=== PATIENT | female | born 1950 | race Caucasian/White ===

== ENCOUNTER 2016-10-11 19:06 | Inpatient (IN) | payer MEDICARE, OTHER ==
[~2016-10-11] VITALS: Ht 165.1 cm; Wt 52.6 kg
[2016-10-12] MEDS ORDERED: TENORMIN 25 MG25 MG PO (00:21)
[2016-10-12] MEDS ORDERED: LEVOTHYROXINE75 MCG PO (00:22)
[2016-10-12] MEDS ORDERED: LORAZEPAM1 MG PO (00:23)
[2016-10-12] MEDS ORDERED: MEGACE TAB 40 M40 MG PO (00:24)
[2016-10-12] MEDS ORDERED: CYMBALTA30 MG PO (00:25)
[2016-10-12] MEDS ORDERED: K-DUR TAB 20 M20 MEQ PO (00:25)
[2016-10-12 04:16] LABS: RED BLOOD COUNT 5.51 M/UL (4.00-5.10); WHITE BLOOD COUNT 16.6 K/UL (4.5-11.0)
[2016-10-13 04:10] LABS: RED BLOOD COUNT 3.93 M/UL (4.00-5.10); WHITE BLOOD COUNT 12.3 K/UL (4.5-11.0)
[2016-10-13 04:11] LABS: HEMOGLOBIN 11.2 gm/dl (12.3-15.3)
[2016-10-14 04:45] LABS: HEMOGLOBIN 10.2 gm/dl (12.3-15.3)
[2016-10-14 04:53] LABS: RED BLOOD COUNT 3.51 M/UL (4.00-5.10); WHITE BLOOD COUNT 7.4 K/UL (4.5-11.0)
[2016-10-15 04:17] LABS: HEMOGLOBIN 9.4 gm/dl (12.3-15.3); RED BLOOD COUNT 3.28 M/UL (4.00-5.10); WHITE BLOOD COUNT 5.6 K/UL (4.5-11.0)
[2016-10-15 17:16] LABS: GLUCOSE,CSF 83 mg/dL (50-80); TOTAL PROTEIN,CSF 54 mg/dL (20-45)
[2016-10-16 04:18] LABS: HEMOGLOBIN 9.9 gm/dl (12.3-15.3); RED BLOOD COUNT 3.41 M/UL (4.00-5.10)
--- NOTE | 2016-10-16 10:32 | NUR ---
Pt alert/oriented to name after hesitation. Still guarded but easily calmed today. No screaming with touch as opposed to yesterday. at bedside. Oral care provided, EEG completed.
[2016-10-16 14:12] LABS: CRYPTOCOCCUS NEOFORMANS/GATTII Not Detected (Negative); CYTOMEGALOVIRUS Not Detected (Negative); ENTEROVIRUS Not Detected (Negative); ESCHERICHIA COLI K1 Not Detected (Negative); HAEMOPHILUS INFLUENZAE Not Detected (Negative); HERPES SIMPLEX VIRUS 1 Not Detected (Negative); HERPES SIMPLEX VIRUS 2 Not Detected (Negative); HUMAN HERPESVIRUS 6 Not Detected (Negative); HUMAN PARECHOVIRUS Not Detected (Negative); LISTERIA MONOCYTOGENES Not Detected (Negative); NEISERRIA MENINGITIDIS Not Detected (Negative); STREPTOCOCCUS AGALACTIAE Not Detected (Negative); STREPTOCOCCUS PNEUMONIAE Not Detected (Negative); VARICELLA ZOSTER VIRUS Not Detected (Negative)
[2016-10-17 03:52] LABS: HEMOGLOBIN 9.5 gm/dl (12.3-15.3); RED BLOOD COUNT 3.31 M/UL (4.00-5.10); WHITE BLOOD COUNT 7.1 K/UL (4.5-11.0)
[2016-10-18 03:57] LABS: HEMOGLOBIN 9.3 gm/dl (12.3-15.3); RED BLOOD COUNT 3.2 M/UL (4.00-5.10); WHITE BLOOD COUNT 6.7 K/UL (4.5-11.0)
[2016-10-19 04:10] LABS: HEMOGLOBIN 9.3 gm/dl (12.3-15.3); RED BLOOD COUNT 3.21 M/UL (4.00-5.10); WHITE BLOOD COUNT 7.9 K/UL (4.5-11.0)
[2016-10-19 04:32] LABS: BUN/CREATININE RATIO 10 (0-10)
[2016-10-20 04:07] LABS: HEMOGLOBIN 9.1 gm/dl (12.3-15.3); RED BLOOD COUNT 3.16 M/UL (4.00-5.10); WHITE BLOOD COUNT 10.1 K/UL (4.5-11.0)
[2016-10-22 06:22] LABS: HEMOGLOBIN 10.2 gm/dl (12.3-15.3); RED BLOOD COUNT 3.47 M/UL (4.00-5.10); WHITE BLOOD COUNT 8.9 K/UL (4.5-11.0)
[2016-10-22 06:45] LABS: BUN/CREATININE RATIO 19 (0-10)
== END 2016-10-22 15:17 | DRG 871 ==
LOC: PROG CARE 22:43 → CCU 22:43 → PROG CARE 10-15 17:47 → M/S 10-20 19:35
PROVIDERS: Family Medicine; Internal Medicine; Internal Medicine Infectious Disease; Internal Medicine Nephrology; ADMIT Internal Medicine
PROC: 02HV33Z Insertion of Infusion Device into Superior Vena Cava, Percutaneous Approach (ICD-10-PCS; principal; 2016-10-12)
PROC: 009U3ZX Drainage of Spinal Canal, Percutaneous Approach, Diagnostic (ICD-10-PCS; 2016-10-15)
DX: A41.9 Sepsis, unspecified organism (principal); G93.49 Other encephalopathy; N17.9 Acute kidney failure, unspecified; E87.0 Hyperosmolality and hypernatremia; E87.2 Acidosis; G91.2 (Idiopathic) normal pressure hydrocephalus; E44.0 Moderate protein-calorie malnutrition; Z68.1 Body mass index [BMI] 19.9 or less, adult; B37.41 Candidal cystitis and urethritis; R65.20 Severe sepsis without septic shock; G62.9 Polyneuropathy, unspecified; I10 Essential (primary) hypertension; L40.50 Arthropathic psoriasis, unspecified; E03.9 Hypothyroidism, unspecified; Z79.899 Other long term (current) drug therapy; Z84.89 Family history of other specified conditions; E87.5 Hyperkalemia; G30.9 Alzheimer's disease, unspecified; F02.80 Dementia in other diseases classified elsewhere, unspecified severity, without behavioral disturbance, psychotic disturbance, mood disturbance, and anxiety; R32 Unspecified urinary incontinence; R26.81 Unsteadiness on feet; E87.6 Hypokalemia; D50.9 Iron deficiency anemia, unspecified; R13.10 Dysphagia, unspecified; R53.81 Other malaise; L98.499 Non-pressure chronic ulcer of skin of other sites with unspecified severity
CPT/HCPCS: 36415; 70450; 70551; 71010; 80048; 80053; 80074; 80202; 80307; 81001; 82436; 82533; 82550; 82553; 82570; 82607; 82728; 82746; 82800; 82945; 82962; 83036; 83540; 83550; 83605; 83735; 83935; 84100; 84132; 84133; 84155; 84156; 84157; 84295; 84300; 84443; 84484; 85025; 85027; 85610; 87015; 87040; 87070; 87086; 87116; 87205; 87210; 87483; 89051; 92526; 92610; 93005; 94640; 95816; 97110; 97116; 97530; 97535; C9113; J0133; J1335; J1450; J1630; J1644; J2250; J2405; J3370; J3420; J3480; J7040; J7050; J7070